=== PATIENT | female | born 1930 | race African-American/Black ===

== ENCOUNTER 2016-09-30 14:24 | Emergency (ER) | payer MEDICARE, OTHER ==
[~2016-09-30] VITALS: Ht 167.6 cm; Wt 82.0 kg
[~2016-09-30 14:24] MED LIST: ALBUTEROL SUL0.083 % IN; ARICEPT10 MG PO; ATENOLOL25 MG PO; BACTRIM DS1 TAB PO; CARAFATE1 GM PO; CARAFATE1 GM/10 ML PO; CETIRIZ/PSE1 TAB PO; CIPROFLOXACN500 MG PO; CLARITHROMYC500 M2 PO; CLOPIDOGREL75 MG PO; CORRECTOL100 MG PO; DARVOCET N-100100 - OR; DONEPEZIL10 MG PO; DONEPEZIL5 MG PO; ECK ACETAMIN325 MG PO; FLUTICASONE50 MCG NAB; HYDROCO/APAP1 TA9 PO; ISOSORB MONO30 MG PO; K-DUR/KLOR-CON20 MEQ PO; KEFLEX500 M1 PO; LANTISEPTI2 EX; LASIX 40 MG TAB40 MG PO; LEVAQUIN500 MG PO; LEVOTHYROXIN75 MCG PO; LIPITOR10 MG OR; LORATADINE10 M1 PO; LORTAB 10 PO; LORTAB 5/3255 MG PO; MILK OF MAG30 ML/UDC PO; MULT VITAMI1 PO; MUPIROCIN2 % EX; NITROGLYCERIN 400 MCG SL; OMEPRAZOLE20 MG PO; PANCRELIPASE PO; PLAVIX75 MG PO; POTASSIUM CHLO10 MEQ PO; PREDNISONE20 MG PO; PREVACID30 M2 PO; PREVPAC PO; PRILOSEC20 MG PO; PROTONIX40 M2 PO; QUESTRAN4 G1 PO; RAYOS5 MG PO; ROBITUSS21 PO; SERTRALINE25 MG PO; SIMVASTATIN20 MG PO; SURFAK240 MG/CAP PO; SYNTHROID75 MCG OR; SYNTHROID75 MCG PO; TRAMADOL HYDROC50 MG PO; ULTRAM50 MG OR; VITAMIN D35000 UNI1 PO; ZOCOR20 M1 PO; ZOFRAN ODT4 MG PO; ZOFRAN4 M1 PO; ZPAK PO; ZYRTEC-D ALG PO; [UNRECOGNIZED DRUG - CODE] PO
[2016-09-30 16:00] VITALS: BP 144/55
== END 2016-09-30 16:37 | disposition home or self-care (01) ==
LOC: ED 14:24
DX: Z04.8 Encounter for examination and observation for other specified reasons (principal); W18.2XXA Fall in (into) shower or empty bathtub, initial encounter; Y93.89 Activity, other specified; Y92.121 Bathroom in nursing home as the place of occurrence of the external cause; Z95.0 Presence of cardiac pacemaker; I25.2 Old myocardial infarction

== ENCOUNTER 2017-07-15 22:19 | Inpatient (IN) | payer MEDICARE, OTHER ==
[~2017-07-15] VITALS: Ht 167.6 cm; Wt 71.8 kg
[~2017-07-15 22:19] MED LIST changes: +ARTIFI TEAR1 OU; +MELATONIN3 MG PO
[2017-07-16 03:40] VITALS: BP 118/79
[2017-07-16 03:41] LABS: URINE BILIRUBIN - DIPSTICK NEGATIVE (NEGATIVE); URINE BLOOD DIPSTICK TRACE-LYSED (NEGATIVE); URINE COLOR YELLOW; URINE GLUCOSE - DIPSTICK NEGATIVE (NEGATIVE); URINE KETONE NEGATIVE (NEGATIVE); URINE LEUK ESTERASE NEGATIVE (NEGATIVE); URINE NITRITE - DIPSTICK NEGATIVE (Negative); URINE PROTEIN - DIPSTICK NEGATIVE (NEG-TRACE); URINE UROBILINOGEN - DIPSTICK 0.2 E.U./dL (0.2)
[2017-07-16 03:42] LABS: URINE CLARITY CLOUDY
[2017-07-16 08:15] VITALS: BP 104/55
[2017-07-16 09:41] LABS: HEMATOCRIT 31.4 % (37.0-47.0); HEMOGLOBIN 10.9 g/dl (12.0-16.0); MEAN CELL VOLUME 83.3 fL CALC (80.0-100.0); MEAN CORPUSCULAR HGB 28.9 pG CALC (26.0-32.0); MEAN CORPUSCULAR HGB CONC 34.7 g/L CALC (32.0-36.0); RED BLOOD COUNT 3.77 mill/uL (4.20-5.60); RED CELL DISTRI WIDTH 17.2 % (11.5-15.5)
[2017-07-16 09:55] LABS: IMMATURE GRANULOCYTES 0.1 % (0.0-1.0); NEUT# 5.2 thou/uL (2.00-7.15)
[2017-07-16 10:13] LABS: ALBUMIN 3.6 g/dL (3.2-5.0); BILIRUBIN, TOTAL 0.8 mg/dL (0.0-1.4); CALCIUM 9.2 mg/dL (8.4-10.2); CREATININE 1.1 mg/dL (0.5-1.0); MAGNESIUM 1.9 mg/dL (1.6-2.3); POTASSIUM 3.8 mmol/l (3.5-5.1); TOTAL PROTEIN 5.6 g/dL (6.3-8.2)
== END 2017-07-16 15:10 | disposition home health service (06) | DRG 536 ==
LOC: ED 22:19 → ED-I 07-16 02:10 → ED 07-16 02:33 → MS2 07-16 02:34
PROVIDERS: Emergency Medicine; Nurse Practitioner Family; ADMIT Internal Medicine; ATTEND Internal Medicine
PROC: 0T9B70Z Drainage of Bladder with Drainage Device, Via Natural or Artificial Opening (ICD-10-PCS; principal; 2017-07-16)
DX: S72.011A Unspecified intracapsular fracture of right femur, initial encounter for closed fracture (principal); I13.0 Hypertensive heart and chronic kidney disease with heart failure and stage 1 through stage 4 chronic kidney disease, or unspecified chronic kidney disease; I50.9 Heart failure, unspecified; J44.9 Chronic obstructive pulmonary disease, unspecified; D46.9 Myelodysplastic syndrome, unspecified; I25.10 Atherosclerotic heart disease of native coronary artery without angina pectoris; K21.9 Gastro-esophageal reflux disease without esophagitis; E03.9 Hypothyroidism, unspecified; N18.9 Chronic kidney disease, unspecified; W05.0XXA Fall from non-moving wheelchair, initial encounter; Y92.099 Unspecified place in other non-institutional residence as the place of occurrence of the external cause; Z99.3 Dependence on wheelchair; Z95.0 Presence of cardiac pacemaker

== ENCOUNTER 2017-08-04 01:56 | Emergency (ER) | payer MEDICARE, OTHER ==
[~2017-08-04] VITALS: Ht 167.6 cm; Wt 68.2 kg
[2017-08-04] MEDS ORDERED: METO25TAB PO (02:14)
[2017-08-04 03:12] LABS: ALBUMIN 4.5 g/dL (3.2-5.0); BILIRUBIN, TOTAL 0.9 mg/dL (0.0-1.4); CALCIUM 10.4 mg/dL (8.4-10.2); CREATININE 1.1 mg/dL (0.5-1.0); POTASSIUM 4.1 mmol/l (3.5-5.1); TOTAL PROTEIN 7.1 g/dL (6.3-8.2)
[2017-08-04 03:30] LABS: HEMATOCRIT 40.5 % (37.0-47.0); IMMATURE GRANULOCYTES 0.2 % (0.0-1.0); MEAN CELL VOLUME 82.3 fL CALC (80.0-100.0); MEAN CORPUSCULAR HGB 28.5 pG CALC (26.0-32.0); MEAN CORPUSCULAR HGB CONC 34.6 g/L CALC (32.0-36.0); NEUT# 7.76 thou/uL (2.00-7.15); RED BLOOD COUNT 4.92 mill/uL (4.20-5.60); RED CELL DISTRI WIDTH 18.8 % (11.5-15.5)
[2017-08-04 05:30] VITALS: BP 139/79
== END 2017-08-04 05:30 | disposition short-term general hospital (02) ==
LOC: ED 01:56 → ED-I 03:17 → ED 05:30
PROVIDERS: Emergency Medicine
DX: K56.609 Unspecified intestinal obstruction, unspecified as to partial versus complete obstruction (principal); D69.6 Thrombocytopenia, unspecified; R74.8 Abnormal levels of other serum enzymes; I10 Essential (primary) hypertension; I25.10 Atherosclerotic heart disease of native coronary artery without angina pectoris; M19.90 Unspecified osteoarthritis, unspecified site; E03.9 Hypothyroidism, unspecified; C90.00 Multiple myeloma not having achieved remission; D69.3 Immune thrombocytopenic purpura
CPT/HCPCS: S0164

== ENCOUNTER 2018-04-17 09:55 | Outpatient (RCR) | payer MEDICARE, OTHER ==
[~2018-04-17 09:55] MED LIST changes: +METO25TAB PO
[2018-04-17 10:15] VITALS: BP 90/54
[2018-04-17 11:00] VITALS: BP 86/54
[2018-04-17 11:26] VITALS: BP 82/53
== END 2018-04-17 11:10 | disposition home or self-care (01) ==
LOC: INF 09:55
PROVIDERS: ATTEND Internal Medicine
PROC: 30233R1 Transfusion of Nonautologous Platelets into Peripheral Vein, Percutaneous Approach (ICD-10-PCS; principal; 2018-04-17)
DX: C90.00 Multiple myeloma not having achieved remission (principal); D69.3 Immune thrombocytopenic purpura; R53.1 Weakness; D47.3 Essential (hemorrhagic) thrombocythemia
CPT/HCPCS: P9034